=== PATIENT | male | born 1965 | race American Indian/Alaskan Native ===

== ENCOUNTER 2018-01-04 06:07 | Emergency (ER) | payer SELFPAY ==
[2018-01-04 07:22] VITALS: BP 146/82
--- NOTE | 2018-01-04 09:02 | Emergency Department Report ---
Minor Respiratory - HPI Chief Complaint: Headache Stated Complaint: CONGESTION Time Seen by Provider: 01/04/18 08:05 Duration: 2-3 months Pain Location: Nose Severity: mild Minor Respiratory: Yes Rhinorrhea, Yes Able to Tolerate Fluids, Yes Cough, No Sore Throat, No Ear Pain, No Sick Contacts, No Hemoptysis, No Chest Pain, No Shortness of Breath, No Fever Other History: This is a 53-year-old -[place] male who presents to the emergency room with congestion and headache for 2-3 months. Past medical history hypertension. Patient states usually his symptoms occur during the winter months when season change. He is currently having rhinorrhea is clear with recurrent headache and congestion for the past 2-3 months. He states and [id number] cold and flu medication with no improvement of symptoms. Patient states symptoms are worse at night when he slammed down he can feel mucus running down the back of his throat. Patient denies fever, nausea or vomiting, chest pain, abdominal pain, cough, and body aches. ED Review of Systems ROS: Stated complaint: CONGESTION Other details as noted in HPI Constitutional: denies: chills, fever ENT: congestion. denies: ear pain, throat pain, dental pain, hearing loss, epistaxis Respiratory: denies: cough, shortness of breath, wheezing Cardiovascular: denies: chest pain, palpitations Gastrointestinal: denies: abdominal pain, nausea, diarrhea Genitourinary: denies: urgency, dysuria Neurological: headache. denies: weakness, paresthesias Psychiatric: denies: anxiety, depression ED Past Medical Hx - Past Medical History Previous Medical History?: Yes Hx Hypertension: Yes - Surgical History Past Surgical History?: Yes Additional Surgical History: ANKLE, JAW AND LEFT LEG SURGERIES FOR REPAIR - Social History Smoking Status: Never Smoker Substance Use Type: None - Medications Home Medications: Home Medications Medication Instructions Recorded Confirmed Last Taken Type Amoxicillin/Potassium Clav 1 each PO BID #10 tablet 01/04/18 Unknown Rx [Augmentin 875-125 Tablet] Guaifen/Phenyleph/Acetaminophn 1 each PO BID #10 tablet 01/04/18 Unknown Rx [Sudafed PE Pressure+Pain+Mucus] Mometasone Furoate [Nasonex] 17 gm NS DAILY #1 spray.pump 01/04/18 Unknown Rx Minor Respiratory Exam - Exam General: Vital signs noted. No distress. Alert and acting appropriately. HEENT: Yes Pharyngeal Erythema (uvula midline), Yes Moist Mucous Membranes, Yes Rhinorrhea (erythematous swollen turbinates with mucoid discharge), Yes Maxillary Tenderness, No Pharyngeal Exudates, No Conjuctival Injection, No Frontal Tenderness Ear: Neither TM Bulge, Neither TM Erythema, Neither EAC Pain, Neither EAC Discharge Neck: Yes Supple, No Adenopathy Lungs: Yes Good Air Exchange, No Wheezes, No Ronchi, No Stridor, No Cough, No Labored Respirations, No Retractions, No Use of Accessory Muscles, No Other Abnormal Lung Sounds Heart: Yes Regular, No Murmur Abdomen: Yes Normal Bowel Sounds, No Tenderness, No Peritoneal Signs Skin: No Rash, No Edema Neurologic: Alert and oriented, no deficits. Musculoskeletal: Unremarkable. ED Course Vital Signs 01/04/18 07:12 Temperature 98.6 F Pulse Rate 77 Respiratory 18 Rate Blood Pressure 146/82 O2 Sat by Pulse 98 Oximetry ED Medical Decision Making - Medical Decision Making Patient was examined by myself and faster. Vitals are normal and patient is in no acute distress. No labs or radiograph obtained at this time. Physical findings susceptible acute maxillary sinusitis. Start Augmentin, nasonex, and pseudoephedrine, Plan discussed with patient to discharge home and treat outpatient. He agrees with ER plan. Patient discharged home in stable condition. Follow up with PCP in 2-3 days. Critical care attestation.: If time is entered above; I have spent that time in minutes in the direct care of this critically ill patient, excluding procedure time. ED Disposition Clinical Impression: Congestion of nasal sinus Acute maxillary sinusitis Qualifiers: Recurrence: non-recurrent Qualified Code(s): J01.00 - Acute maxillary sinusitis , unspecified Disposition: - TO HOME OR SELFCARE Is pt being admited?: No Does the pt Need Aspirin: No Condition: Stable Instructions: Sinusitis (ED) Additional Instructions: Increase fluid intake and rest. Wash hands frequently. Continue taking Tylenol or ibuprofen to control fever. F/U with Primary Care Provider. Return to ER if fever, SOB, or difficulty breathing after 48 hours of supportive care. Prescriptions: Amoxicillin/Potassium Clav [Augmentin 875-125 Tablet] 1 each PO BID #10 tablet Guaifen/Phenyleph/Acetaminophn [Sudafed PE Pressure+Pain+Mucus] 1 each PO BID # 10 tablet Mometasone Furoate [Nasonex] 17 gm NS DAILY #1 spray.pump Referrals: HARIS DOUGHERTY MD [Staff Physician] - 3-5 Days [facility] [Outside] - 3-5 Days [facility] [Outside] - 3-5 Days Time of Disposition: 09:02 Print Language: DOMINICAN
== END 2018-01-04 09:13 | disposition home or self-care (01) ==
LOC: ED 06:07
DX: J01.00 Acute maxillary sinusitis, unspecified (principal); I10 Essential (primary) hypertension
CPT/HCPCS: 99282

== ENCOUNTER 2018-06-11 08:17 | Emergency (ER) | payer SELFPAY ==
[2018-06-11 08:23] VITALS: BP 180/94
--- NOTE | 2018-06-11 09:17 | Emergency Department Report ---
Chief Complaint: Back Pain/Injury Stated Complaint: BACK PAIN Time Seen by Provider: 06/11/18 08:47 - HPI History of Present Illness: Patient is a 53-year-old asthmatic male who states that he has had lower back pain for approximately 1 year. Patient states was diagnosed with herniated disc and is supposed to see a back surgeon however patient states he is uninsured and has no source of income.. Patient states that pain is a 6 out of 10 in severity and is worse with movement. Patient denies any bowel or bladder dysfunction recent falls or trauma. Patient states pain is worse with certain movements. Patient was stating that he has tried to get Social Security benefits for approximately 2 years and has been unsuccessful. Patient states he tried seeing urgent care with a deep money up front and the patient has no N, no money. - ROS Review of Systems: All systems are reviewed and are negative - Exam Vital Signs: Vital Signs 06/11/18 08:21 Temperature 98.6 F Pulse Rate 94 H Respiratory 18 Rate Blood Pressure 180/94 O2 Sat by Pulse 97 Oximetry Physical Exam: Patient is alert and oriented 3 in no acute distress. Patient's heart and lungs are within normal limits. Patient with generalized lower lumbar back discomfort palpation. MSE screening note: Focused history and physical exam performed. Due to findings the following was ordered: ED Medical Decision Making - Medical Decision Making A long conversation with the patient regarding the appropriate place he should be treated. Patient ultimately has a chronic condition and should see orthopedic doctor. Dr. Abbott's information has been given to the patient. I also stated to the patient that if we treat the patient here with nonnarcotic medications this would further setback his financial situation. Patient has been told he should use up to 600 mg Motrin every 6 hours. Patient should continue ice therapy. Patient has no emergent medical condition at this time. Patient states he is unable to pay the $150 co-pay. Patient has been referred to the [facility] to see if he can find a cheaper option for treatment for his chronic condition until he is able to see orthopedics. Respiration is also seen the patient regarding patient being enrolled in Medicare. ED Disposition for MSE Clinical Impression: Chronic back pain Qualifiers: Back pain location: low back pain Back pain laterality: unspecified Sciatica presence: without sciatica Qualified Code(s): M54.5 - Low back pain; G89.29 - Other chronic pain Disposition: MED SCREENING EXAM-LEFT Is pt being admited?: No Does the pt Need Aspirin: No Condition: Stable Instructions: Chronic Back Pain (ED) Referrals: SHANIQUE ABBOTT MD [Staff Physician] - 3-5 Days Time of Disposition: 09:17
== END 2018-06-11 09:26 | disposition left against medical advice (07) ==
LOC: ED 08:17
DX: G89.29 Other chronic pain (principal); M54.5 Low back pain
CPT/HCPCS: 99282

== ENCOUNTER 2018-08-24 06:32 | Emergency (ER) | payer SELFPAY ==
[2018-08-24 06:42] VITALS: BP 160/98
[2018-08-24] MEDS ORDERED: ULTRAM PO ONE (09:02)
--- NOTE | 2018-08-24 09:03 | Emergency Department Report ---
ED Upper Extremity Inj HPI - General Chief Complaint: Extremity Injury, Upper Stated Complaint: RIGHT SHOULDER/ARM PAIN Time Seen by Provider: 08/24/18 08:37 Source: patient Mode of arrival: Ambulatory Limitations: No Limitations - History of Present Illness Initial Comments: This is a 53-year-old -[place] male who presents with pain to right sc apula 2 weeks. Patient history of bulging disks in lumbar, hypertension, and chronic back pain. Patient states pain is worse when lying on back. He is applying tens machine when and icy hot with no improvement of symptoms. He denies recent injury, numbness or tingling, paresthesias, weakness, or erythema. MD Complaint: Injury to:: right, shoulder Onset/Timin -: week(s) Other Injuries: none Handedness: right Place: home Severity scale (0 -10): 8 Improves With: none Worsens With: movement of extremity Associated Symptoms: denies other symptoms Treatments Prior to Arrival: cold therapy, NSAIDS - Related Data Previous Rx's Medication Instructions Recorded Last Taken Type Amoxicillin/Potassium Clav 1 each PO BID #10 tablet 01/04/18 Unknown Rx [Augmentin 875-125 Tablet] Guaifen/Phenyleph/Acetaminophn 1 each PO BID #10 tablet 01/04/18 Unknown Rx [Sudafed PE Pressure+Pain+Mucus] Mometasone Furoate [Nasonex] 17 gm NS DAILY #1 spray.pump 01/04/18 Unknown Rx Naproxen [Naprosyn] 500 mg PO TID PRN #20 tablet 08/24/18 Unknown Rx traMADol [Ultram 50 MG tab] 50 mg PO Q6HR PRN #12 tablet 08/24/18 Unknown Rx Allergies Allergy/AdvReac Type Severity Reaction Status Date / Time No Known Allergies Allergy Unverified 08/26/15 06:53 ED Review of Systems ROS: Stated complaint: RIGHT SHOULDER/ARM PAIN Other details as noted in HPI Constitutional: denies: chills, fever Respiratory: denies: cough, shortness of breath, wheezing Cardiovascular: denies: chest pain, palpitations Gastrointestinal: denies: abdominal pain, nausea, diarrhea Musculoskeletal: arthralgia (right shoulder and scapula pain). denies: joint swelling Skin: denies: rash, lesions Neurological: denies: headache, weakness, paresthesias Psychiatric: denies: anxiety, depression ED Past Medical Hx - Past Medical History Previous Medical History?: Yes Hx Hypertension: Yes Additional medical history: chronic back pain - Surgical History Past Surgical History?: Yes Additional Surgical History: ANKLE, JAW AND LEFT LEG SURGERIES FOR REPAIR - Social History Smoking Status: Never Smoker Substance Use Type: None - Medications Home Medications: Home Medications Medication Instructions Recorded Confirmed Last Taken Type Amoxicillin/Potassium Clav 1 each PO BID #10 tablet 01/04/18 Unknown Rx [Augmentin 875-125 Tablet] Guaifen/Phenyleph/Acetaminophn 1 each PO BID #10 tablet 01/04/18 Unknown Rx [Sudafed PE Pressure+Pain+Mucus] Mometasone Furoate [Nasonex] 17 gm NS DAILY #1 spray.pump 01/04/18 Unknown Rx Naproxen [Naprosyn] 500 mg PO TID PRN #20 tablet 08/24/18 Unknown Rx traMADol [Ultram 50 MG tab] 50 mg PO Q6HR PRN #12 tablet 08/24/18 Unknown Rx ED Physical Exam - General Limitations: No Limitations General appearance: alert, in no apparent distress, obese - Respiratory Respiratory exam: Present: normal lung sounds bilaterally. Absent: respiratory distress - Cardiovascular Cardiovascular Exam: Present: regular rate, normal rhythm. Absent: systolic murmur, diastolic murmur, rubs, gallop - GI/Abdominal GI/Abdominal exam: Present: soft, normal bowel sounds - Rectal Rectal exam: Present: deferred - Expanded Upper Extremity Exam Right Shoulder Exam: Present: full ROM (painful range of motion), tenderness (tenderness on palpation below his scapula, no erythema or swelling), crepidus. Absent: swelling, abrasion, laceration, ecchymosis, deformity, dislocation, erythema, tenderness over AC joint Upper Arm exam: Present: normal inspection, full ROM Elbow exam: Present: normal inspection, full ROM Forearm Wrist exam: Present: normal inspection, full ROM Hand Wrist exam: Present: normal inspection, full ROM Neuro motor exam: Present: wrist extension intact, thumb opposition intact, thumb IP flexion intact, thumb adduction intact, fingers 2-5 abduction intact Neurosensory exam: Present: radial nerve intact, ulnar nerve intact, median nerve intact Vascular: Present: normal capillary refill, radial pulse (+2) - Back Exam Back exam: Present: normal inspection - Neurological Exam Neurological exam: Present: alert, oriented X3, normal gait - Psychiatric Psychiatric exam: Present: normal affect, normal mood - Skin Skin exam: Present: warm, dry, intact, normal color. Absent: rash ED Course Vital Signs 08/24/18 06:40 Temperature 98.7 F Pulse Rate 99 H Respiratory 16 Rate Blood Pressure 160/98 O2 Sat by Pulse 97 Oximetry ED Medical Decision Making - Radiology Data Radiology results: report reviewed RIGHT SCAPULA, 2 views: History: Pain below scapula. The bony architecture is intact without evidence of fracture or dislocation. Moderate osteoarthritic changes are identified at the acromioclavicular joint. The visualized right ribs are unremarkable. No significant soft tissue abnormality is seen. IMPRESSION: Right scapula within normal limits. Osteoarthritis at the a.c. joint. - Medical Decision Making Patient was examined by me. Vitals are normal and patient is in no acute distress. Obtained a x-ray of the right scapula. X-ray dictated by radiologist and report reviewed by myself. Right scapula within normal limits. Osteoarthritis at the a.c. joint. Patient informed of results. Referral to orthopedics for continued care. Start tramadol and naproxen for pain. Plan discussed with patient to discharge home and treat outpatient. He agrees with ER plan. Patient discharged home in stable condition. Follow up with PCP in 2-3 days. Critical care attestation.: If time is entered above; I have spent that time in minutes in the direct care of this critically ill patient, excluding procedure time. ED Disposition Clinical Impression: Pain in scapula Right shoulder pain Qualifiers: Chronicity: acute Qualified Code(s): M25.511 - Pain in right shoulder Osteoarthritis Qualifiers: Osteoarthritis location: shoulder Osteoarthritis type: primary Laterality: right Qualified Code(s): M19.011 - Primary osteoarthritis, right shoulder Disposition: DC-01 TO HOME OR SELFCARE Is pt being admited?: No Does the pt Need Aspirin: No Condition: Stable Instructions: Osteoarthritis (ED), Self-Care Measures with a Chronic Disease (ED) Additional Instructions: Follow up with Orthopedic surgeon for continued care. Take pain medication as prescribed. Return to the ER if pain increase, swelling, redness, or warmth to area. Prescriptions: Naproxen [Naprosyn] 500 mg PO TID PRN #20 tablet PRN Reason: Pain, Moderate (4-6) traMADol [Ultram 50 MG tab] 50 mg PO Q6HR PRN #12 tablet PRN Reason: Pain Referrals: HOLMAN SURY MAHAJAN MD [Primary Care Provider] - 3-5 Days SHANIQUE MADISON MD [Staff Physician] - 3-5 Days [facility] [Provider Group] - 3-5 Days [facility] [Outside] - 3-5 Days Forms: Work/School Release Form(ED) Time of Disposition: 09:56
--- NOTE | 2018-08-24 09:20 | XRay Report ---
RIGHT SCAPULA, 2 views: History: Pain below scapula. The bony architecture is intact without evidence of fracture or dislocation. Moderate osteoarthritic changes are identified at the acromioclavicular joint. The visualized right ribs are unremarkable. No significant soft tissue abnormality is seen. IMPRESSION: Right scapula within normal limits. Osteoarthritis at the a.c. joint.
== END 2018-08-24 10:12 | disposition home or self-care (01) ==
LOC: ED 06:32
DX: M19.011 Primary osteoarthritis, right shoulder (principal); I10 Essential (primary) hypertension; G89.29 Other chronic pain; Z98.890 Other specified postprocedural states

== ENCOUNTER 2021-04-02 12:41 | Emergency (ER) | payer MEDICARE ==
--- NOTE | 2021-04-02 13:20 | Emergency Department Report ---
- General Stated Complaint: COLD SX'S PUI?: Yes Time Seen by Provider: 04/02/21 13:10 Source: patient Mode of arrival: Ambulatory Limitations: No Limitations - History of Present Illness Initial Comments: Chief complaint: "I have a cold or flu." HPI: Is a 56-year-old male history of hypertension presents with cough diarrhea for 2 weeks. His is being evaluated emergency department with similar symptoms. No known sick contacts otherwise. He denies fever, headache, sore throat, chest pain. Denies abdominal pain. Denies shortness of breath. Denies loss of taste or smell. He is not vaccinated against COVID-19. His PCP is affiliated with [facility]. Complaint: cough, other (Diarrhea) -: Gradual, week(s) (2 weeks) Severity: mild Consistency: constant Improves With: nothing Worsens With: nothing Context: sick contacts ( being evaluated with similar symptoms) - Related Data Previous Rx's Medication Instructions Recorded Last Taken Type Amoxicillin/Potassium Clav 1 each PO BID #10 tablet 01/04/18 Unknown Rx [Augmentin 875-125 Tablet] Guaifen/Phenyleph/Acetaminophn 1 each PO BID #10 tablet 01/04/18 Unknown Rx [Sudafed PE Pressure+Pain+Mucus] Mometasone Furoate [Nasonex] 17 gm NS DAILY #1 spray.pump 01/04/18 Unknown Rx Naproxen [Naprosyn] 500 mg PO TID PRN #20 tablet 08/24/18 Unknown Rx traMADoL [Ultram 50 MG tab] 50 mg PO Q6HR PRN #12 tablet 08/24/18 Unknown Rx Allergies Allergy/AdvReac Type Severity Reaction Status Date / Time No Known Allergies Allergy Unverified 08/26/15 06:53 ED Review of Systems ROS: Stated complaint: COLD SX'S Other details as noted in HPI Comment: All other systems reviewed and negative Constitutional: denies: chills, fever, malaise Respiratory: cough. denies: shortness of breath Cardiovascular: denies: chest pain Gastrointestinal: diarrhea. denies: abdominal pain, nausea, vomiting ED Past Medical Hx - Past Medical History Previous Medical History?: Yes Hx Hypertension: Yes Additional medical history: chronic back pain - Surgical History Past Surgical History?: Yes Additional Surgical History: ANKLE, JAW AND LEFT LEG SURGERIES FOR REPAIR - Social History Smoking Status: Never Smoker Substance Use Type: None - Medications Home Medications: Home Medications Medication Instructions Recorded Confirmed Last Taken Type Amoxicillin/Potassium Clav 1 each PO BID #10 tablet 01/04/18 Unknown Rx [Augmentin 875-125 Tablet] Guaifen/Phenyleph/Acetaminophn 1 each PO BID #10 tablet 01/04/18 Unknown Rx [Sudafed PE Pressure+Pain+Mucus] Mometasone Furoate [Nasonex] 17 gm NS DAILY #1 spray.pump 01/04/18 Unknown Rx Naproxen [Naprosyn] 500 mg PO TID PRN #20 tablet 08/24/18 Unknown Rx traMADoL [Ultram 50 MG tab] 50 mg PO Q6HR PRN #12 tablet 08/24/18 Unknown Rx ED Physical Exam - General Limitations: No Limitations General appearance: alert, in no apparent distress, other (Semisupine position, appears comfortable) - Head Head exam: Present: atraumatic, normocephalic - Eye Eye exam: Present: normal appearance - ENT ENT exam: Present: mucous membranes moist - Neck Neck exam: Present: normal inspection - Respiratory Respiratory exam: Present: normal lung sounds bilaterally. Absent: respiratory distress, wheezes, rales, rhonchi, stridor - Cardiovascular Cardiovascular Exam: Present: regular rate, normal rhythm, normal heart sounds. Absent: systolic murmur, diastolic murmur, rubs, gallop - GI/Abdominal GI/Abdominal exam: Present: soft, normal bowel sounds. Absent: distended, tend erness, guarding, rebound - Rectal Rectal exam: Present: deferred - Extremities Exam Extremities exam: Present: normal inspection - Back Exam Back exam: Present: normal inspection - Neurological Exam Neurological exam: Present: alert, oriented X3 - Psychiatric Psychiatric exam: Present: normal affect, normal mood - Skin Skin exam: Present: warm, dry, intact, normal color. Absent: rash ED Course Vital Signs 04/02/21 04/02/21 13:20 13:36 Temperature 99 F Pulse Rate 90 Respiratory 23 23 Rate Blood Pressure 147/72 Blood Pressure 147/72 [Left] O2 Sat by Pulse 93 95 Oximetry ED Medical Decision Making - Radiology Data Radiology results: report reviewed Patient Name: MIKE CASILLAS Gender: Male Date of : 1965 Referring Provider: KAROLYN PINEDA Organization: [facility] Accession Number: [id number] Requested Date: April 02, 2021 13:16 Report Status: Final Requested Procedure: 1 Procedure Description: XR chest 1V ap Modality: XR Findings Reporting MD: Rosa Houser Dictation Time: April 02, 2021 12:59 Neurology Tech: Not available Distribution Collection Operator Date: CHEST 1 VIEW INDICATION / CLINICAL INFORMATION: cough. COMPARISON: 08/26/2015 FINDINGS: SUPPORT DEVICES: None. HEART / MEDIASTINUM: No significant abnormality. LUNGS / PLEURA: There are multiple bilateral pulmonary opacities, very concerning for Covid pneumonia. No large area of consolidation or pleural effusion noted. No pneumothorax. ADDITIONAL FINDINGS: No significant additional findings. IMPRESSION: 1. Multiple bilateral pulmonary opacities worrisome for multifocal viral pneumonia. Please correlate with Covid status. Signer Name: Rosa Houser MD Signed: 04/02/2021 12:59 PM Workstation Name: [employer] - Medical Decision Making Multifocal pneumonia most likely COVID-19 infection. Recommended outpatient COVID-19 testing. Patient given return precautions specifically shortness of breath, chest pain. Critical care attestation.: If time is entered above; I have spent that time in minutes in the direct care of this critically ill patient, excluding procedure time. ED Disposition Clinical Impression: Pneumonia due to COVID-19 virus Disposition: HOME / SELF CARE / HOMELESS Is pt being admited?: No Does the pt Need Aspirin: No Condition: Stable Instructions: Bacterial Pneumonia (ED), COVID-19 Referrals: PRIMARY CAREMD [Primary Care Provider] - 3-5 Days
[2021-04-02 13:35] VITALS: BP 147/72
--- NOTE | 2021-04-02 14:03 | XRay Report ---
CHEST 1 VIEW INDICATION / CLINICAL INFORMATION: cough. COMPARISON: 08/26/2015 FINDINGS: SUPPORT DEVICES: None. HEART / MEDIASTINUM: No significant abnormality. LUNGS / PLEURA: There are multiple bilateral pulmonary opacities, very concerning for Covid pneumonia . No large area of consolidation or pleural effusion noted. No pneumothorax. ADDITIONAL FINDINGS: No significant additional findings. IMPRESSION: 1. Multiple bilateral pulmonary opacities worrisome for multifocal viral pneumonia. Please correlate with Covid status. Signer Name: Rosa Houser MD Signed: 04/02/2021 1:59 PM Workstation Name: [id number]
== END 2021-04-02 14:39 | disposition home or self-care (01) ==
LOC: ED 12:41
DX: U07.1 COVID-19 (principal); J12.82 Pneumonia due to coronavirus disease 2019; I10 Essential (primary) hypertension
CPT/HCPCS: 71045; 99283